=== PATIENT | male | born 1960 | race Caucasian/White ===

== ENCOUNTER 2017-03-06 09:58 | Emergency (ER) | payer OTHER, BC ==
--- NOTE | 2017-03-06 10:52 | ERNOTE ---
Upper Extremity HPI - Narrative Date of Service: 03/06/17 - General Extremities Pain Location: 2nd finger: right Time Seen by Provider: 03/06/17 10:10 Source: patient Exam Limitations: no limitations - Immun/Allergies/Home Medications Immunizations: IMMUNIZATION HX Immunizations Up to Date Yes Allergies/Adverse Reactions: Allergies Allergy/AdvReac Type Severity Reaction Status Date / Time No Known Allergies Allergy Unverified 03/06/17 10:05 Home Medications: HOME MEDICATIONS Cephalexin Monohydrate [Keflex] 500 mg PO QID #40 cap 03/06/17 [Last Taken Unknown] - History of Present Illness Narrative: Pt. comes in with c/o getting his R second finger tip caught between the gears on a truck gear box when he was swinging a sledgehammer to open the box. Pt. denies any numbness, tingling, SOB, CP, NVD, fever, or recent illness. Pt. states that his last tetanus was in 2011. Pt. denies any prehospital treatment. Review of Systems - Review of Systems Constitutional: Present: no symptoms reported. Absent: recent illness, fever, chills, weakness, fatigue EYE: Present: no symptoms reported ENT: Present: no symptoms reported Respiratory: Present: no symptoms reported. Absent: shortness of breath, cough , wheezing Cardiology: Present: no symptoms reported. Absent: chest pain, palpitations, edema Musculoskeletal: Present: no symptoms reported Skin: Present: other - laceration R second finger Neurological: Present: no symptoms reported. Absent: numbness, tingling All Other Systems: All systems neg except as marked - Patient's Past Medical History Patient History - Medical: No pertinent hx Patient History - Cardiac/Respiratory: No pertinent hx Patient History - Cancer: No Hx of Cancer Patient History - Surgical Procedures: Other Patient History - Other: None - Social History Smoking Status: Never smoker Have you smoked in the past 12 months: No - Immunizations Immunizations Up to Date: Yes Physical Exam - Physical Exam General Appearance: Present: wd/wn, alert, no apparent distress Head Exam: Present: normal inspection, no evidence of injury Eye Exam: Normal inspection: bilateral, PERRL: bilateral, EOMI: bilateral Respiratory: Present: no respiratory distress, normal breath sounds, no accessory muscle use, chest nontender, lungs clear Cardiovascular/Chest: Present: regular rate, rhythm, no murmur, normal peripheral pulses Neurological Exam: Present: alert, oriented, normal mood/affect, no motor/ sensory deficits Skin Exam: Present: normal color, warm/dry, other - laceration R 2nd finger ED Progress - Vital Signs Patient's Vital Signs:: I have reviewed the patient's vital signs. Vital Signs: Vital Signs 03/06/17 10:02 Temperature 36.7 C Pulse Rate 100 Respiratory 12 Rate Blood Pressure 164/100 O2 Sat by Pulse 98 Oximetry - Progress/Reassessment Chief Complaint: Hand Injury/Pain Progress:: Improved Procedures Right Volar Finger 2nd Digit Anesthesia: 1% Lidocaine I & D Prep: betadine prep Length of Repair/Wound (cm): 3 Wound's Depth/Shape: into subcutaneous, irregular Wound Explored: contaminated heavily Wound Intervention: irrigated w/saline, debrided extensive, multiple flaps aligned Distal NVT: neuro/vasc intact, no tendon injury Wound Repaired With: sutures Suture Size/Type: 3-0, prolene Number of Sutures: 5 Layer Closure: Simple Estimated blood loss (ml): 5 Wound Dressing: sterile dressing applied, splint applied Complications: Pt neela procedure well Departure Clinical Impression: Laceration - Departure Disposition: Home self-care Condition: Good Instructions: Laceration Care, Adult, [id number] Additional Instructions: Please follow up with [facility] for wound check and suture removal in 7-10 days. Prescriptions: Cephalexin Monohydrate [Keflex] 500 mg PO QID #40 cap
[2017-03-06 11:36] VITALS: BP 128/94
== END 2017-03-06 11:35 | disposition home or self-care (01) ==
LOC: ER 09:58
PROC: 0JQJ0ZZ Repair Right Hand Subcutaneous Tissue and Fascia, Open Approach (ICD-10-PCS; principal; 2017-03-06)
DX: S61.210A Laceration without foreign body of right index finger without damage to nail, initial encounter (principal); X58.XXXA Exposure to other specified factors, initial encounter; Y93.89 Activity, other specified; Y92.9 Unspecified place or not applicable; Y99.9 Unspecified external cause status